=== PATIENT | male | born 1950 | race Caucasian/White ===

== ENCOUNTER 2017-06-03 04:42 | Observation (INO) | payer MEDICARE, MEDICAID ==
[~2017-06-03] VITALS: Ht 152.4 cm; Wt 62.0 kg
[2017-06-03] VITALS (10 sets, daily range): BP systolic 122–148; BP diastolic 59–85; PULSE 64–85; RESP 16–18; TEMP 96.4–98.4; O2SAT 95–99
[~2017-06-03 04:42] MED LIST: ASPI81TA81 PO; BETA0.0557 TOPICAL; CALTTAB PO; CYAN1000P IM; CYAN1000P SQ; DOXY100T PO; DYAZ37.5 PO; FERR325T PO; GARL500C2 PO; MULT1TAB46 PO; VITA100021 SL; [UNRECOGNIZED DRUG - OTHER] TD; [UNRECOGNIZED DRUG - SUPPLY] TD; [UNRECOGNIZED DRUG - SUPPLY] TOPICAL; eucerin cream TOP
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
[2017-06-03] MEDS ORDERED: SODIUM CHLORIDE 0.9% FLUSH 10 ML FLUSH IVF PRN (05:00)
[2017-06-03] MEDS ORDERED: ASPIRIN 81 MG CHEW TAB CHEW ONE (05:00)
--- NOTE | 2017-06-03 05:55 | RADRPT ---
EXAM DATE/TIME: 06/03/2017 05:02 [facility] COMPARISON: No previous studies available for comparison. INDICATIONS : Chest pain. MEDICAL HISTORY : Hypertension. SURGICAL HISTORY : None. ENCOUNTER: Initial ACUITY: 1 day PAIN SCORE: 4/10 LOCATION: chest substernal FINDINGS: PA and lateral views of the chest demonstrate the lungs to be symmetrically aerated without evidence of mass, infiltrate or effusion. The cardiomediastinal contours are unremarkable. Osseous structure s are intact. CONCLUSION: No acute disease. Barrett Christiansen MD on June 03, 2017 at 5:52 Board Certified Radiologist. This report was verified electronically.
[2017-06-03 06:02] LABS: AUTOMATED NEUTROPHIL # 10.7 TH/MM3 (1.8-7.7); BASOPHIL # 0.1 TH/MM3 (0-0.2); BASOPHIL % 0.5 % (0.0-2.0); EOSINOPHIL # 0.1 TH/MM3 (0-0.4); EOSINOPHIL % 0.6 % (0.0-4.0); HEMATOCRIT 34.4 % (39.0-51.0); HEMOGLOBIN 11.2 GM/DL (13.0-17.0); LYMPH % 6.8 % (9.0-44.0); LYMPHOCYTE # 0.8 TH/MM3 (1.0-4.8); MEAN CELL VOLUME 89.3 FL (80.0-100.0); MEAN CORPUSCULAR HEMOGLOBIN 29.1 PG (27.0-34.0); MEAN CORPUSCULAR HGB CONC 32.6 % (32.0-36.0); MEAN PLATELET VOLUME 7.4 FL (7.0-11.0); MONOCYTE # 0.6 TH/MM3 (0-0.9); NEUT % 87.1 % (16.0-70.0); PLATELET COUNT 424 TH/MM3 (150-450); RED BLOOD COUNT 3.85 MIL/MM3 (4.50-5.90); RED CELL DISTRIBUTION WIDTH 14.5 % (11.6-17.2); WHITE BLOOD COUNT 12.3 TH/MM3 (4.0-11.0)
[2017-06-03 06:10] LABS: CHLORIDE 100 MEQ/L (98-107); SODIUM (NA) 136 MEQ/L (136-145)
[2017-06-03 06:13] LABS: CALCIUM 8.3 MG/DL (8.5-10.1)
[2017-06-03 06:14] LABS: ALBUMIN 2.8 GM/DL (3.4-5.0); BICARBONATE 29.3 MEQ/L (21.0-32.0); BLOOD UREA NITROGEN 18 MG/DL (7-18); GLUCOSE,RANDOM 117 MG/DL (74-106); PROTHROMBIN TIME - PATIENT 10.1 SEC (9.8-11.6)
[2017-06-03 06:16] LABS: ALT (GPT) 69 U/L (12-78)
[2017-06-03 06:17] LABS: AST (GOT) 137 U/L (15-37); GLOMERULAR FILTRATION RATE 67 ML/MIN (>89)
[2017-06-03 06:18] LABS: TOTAL BILIRUBIN ADULT 0.3 MG/DL (0.2-1.0); TOTAL PROTEIN 7.8 GM/DL (6.4-8.2)
[2017-06-03 06:19] LABS: ALKALINE PHOSPHATASE 147 U/L (45-117)
[2017-06-03 06:22] LABS: TROPONIN I LESS THAN 0.02 NG/ML (0.02-0.05)
[2017-06-03] MEDS ORDERED: POTASSIUM CHLORIDE 20 MEQ CONTROLLED RELEASE TAB PO ONE (06:30)
[2017-06-03] MEDS ORDERED: FERR325T18 PO (06:35)
[2017-06-03] MEDS ORDERED: ACETAMINOPHEN 500 MG CPLT PO PRN (06:45)
[2017-06-03] MEDS ORDERED: ONDANSETRON HCL 4 MG/2 ML VIAL IV PUSH PRN (06:45)
[2017-06-03] MEDS ORDERED: SODIUM CHLORIDE 0.9% FLUSH 10 ML FLUSH IV FLUSH PRN (06:45)
[2017-06-03] MEDS ORDERED: SODIUM CHLORIDE 0.9% FLUSH 10 ML FLUSH IV FLUSH SCH (09:00)
[2017-06-03 09:09] LABS: TROPONIN I LESS THAN 0.02 NG/ML (0.02-0.05)
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
[2017-06-03 13:20] LABS: TROPONIN I LESS THAN 0.02 NG/ML (0.02-0.05)
[2017-06-03] MEDS ORDERED: HEPARIN SODIUM - SQ 10,000 UNITS/ML VIAL SQ SCH (14:00)
--- NOTE | 2017-06-03 14:40 | EKG ---
Date Performed: 06/03/2017 Time Performed: 05:59:15 PTAGE: 67 years EKG: Sinus rhythm NORMAL ECG NO PREVIOUS TRACING DOCTOR: Brock Mondragon Interpretating Date/Time 06/03/2017 14:37:57
[2017-06-03] MEDS ORDERED: REGADENOSON INJ 0.4 MG/5 ML SYR IV ONE (15:24)
--- NOTE | 2017-06-03 15:49 | EKG ---
Date Performed: 06/03/2017 Time Performed: 08:57:08 PTAGE: 67 years EKG: Sinus rhythm NORMAL ECG PREVIOUS TRACING :06/03/2017 @0559 DOCTOR: Brock Mondragon Interpretating Date/Time 06/03/2017 15:45:29
--- NOTE | 2017-06-03 16:32 | RADRPT ---
EXAM DATE/TIME: 06/03/2017 15:09 [facility] COMPARISON: No previous studies available for comparison. INDICATIONS : Chest pain for 1 day. Angina. DOSE: 25.8 mCi Tc99m Myoview at stress. 8.1 mCi Tc99m Myoview at rest. 0.4 mg Lexiscan STRESS SYMPTOMS: Stomach cramps. EJECTION FRACTION: > 70% MEDICAL HISTORY : Hypertension. SURGICAL HISTORY : Colostomy. Head, pelvis and rib surgery. ENCOUNTER: Initial ACUITY: 1 day PAIN SCALE: 2/10 LOCATION: Bilateral chest TECHNIQUE: The patient underwent pharmacologic stress with infusion of prescribed dose. Continuous ECG tracing was monitored during stress. Gated SPECT imaging was performed after stress and conventional SPECT i maging was performed at rest. The examination was performed on a SPECT/CT scanner, both attenuation and non-corrected datasets were reviewed. FINDINGS: DISTRIBUTION: The maximum perfused segment at stress is in the anterior wall. PERFUSION STUDY: The pattern of perfusion at stress is within normal limits. GATED STUDY: There is intact wall motion and thickening without hypokinetic or dyskinetic segments. CONCLUSION: 1. No significant reversibility to suggest ischemia. 2. Normal wall motion with ejection fraction of greater than 70%. RISK CATEGORY: Low (<1% Annual Mortality Rate) You Sepulveda MD on June 03, 2017 at 16:23 Board Certified Radiologist. This report was verified electronically.
--- NOTE | 2017-06-03 16:41 | HHI.DCPOC ---
Discharge Care Plan Diagnosis: (1) Chest pain Goals to Promote Your Health * To prevent worsening of your condition and complications * To maintain your health at the optimal level Directions to Meet Your Goals Take your medications as prescribed Follow your dietary instruction Follow activity as directed Keep your appointments as scheduled Take your immunizations and boosters as scheduled If your symptoms worsen call your PCP, if no PCP go to Urgent Care Center or Emergency Room Smoking is Dangerous to Your Health. Avoid second hand smoke Call the 24-hour hour crisis hotline for domestic abuse at Mook Monroy Jun 03, 2017 16:41
--- NOTE | 2017-06-03 17:02 | TR ---
Date Performed: 06/03/2017 Time Performed: 15:36:05 DOCTOR: Ashwini Gerard DRUG LIST: CLINICAL HISTORY: REASON FOR TEST: REASON FOR ENDING: OBSERVATION: CONCLUSION: Lexiscan stress test was performed under standard four minute protocol. Radionuclid e was injected one minute prior to ending the test. No electrocardiographic abormalities were present to suggest ischemia. Nuclear imaging and interpretation are pending. COMMENTS:
--- NOTE | 2017-06-04 23:00 | EKG ---
Date Performed: 06/03/2017 Time Performed: 13:23:03 PTAGE: 67 years EKG: SINUS BRADYCARDIA BORDERLINE ECG PREVIOUS TRACING : 06/03/2017 08.57 Since the previous tracing, no significant change noted DOCTOR: Antonieta Montelongo Interpretating Date/Time 06/04/2017 23:00:22
== END 2017-06-03 18:43 | disposition home or self-care (01) ==
LOC: PHED 04:42 → PHEDA 06:37 → PH3B 11:05
PROVIDERS: ADMIT Hospitalist; ATTEND Hospitalist
DX: R07.89 Other chest pain (principal); E87.6 Hypokalemia; R00.1 Bradycardia, unspecified; I10 Essential (primary) hypertension; E78.5 Hyperlipidemia, unspecified; R41.89 Other symptoms and signs involving cognitive functions and awareness; I87.8 Other specified disorders of veins; K21.9 Gastro-esophageal reflux disease without esophagitis; Z79.82 Long term (current) use of aspirin
CPT/HCPCS: 71046; 78452; 80053; 82550; 83690; 83735; 84484; 85025; 85610; 85730; 93005; 93017; 99285; A9502; G0378; J2785